=== PATIENT | male | born 1995 | race Caucasian/White ===

== ENCOUNTER → 2017-06-01 | Day surgery (SDC) | payer BC ==
[~2017-06-01] MED LIST: ADVIL200 M3 PO; ALEVE220 M1 PO
--- NOTE | ~2017-06-01 | OR ---
Unit #: [id number] #: [id number] Patient: ZIA JOHNSON [id number] [address] [place], [place] [address] [id number] O MR#: [id number] NAME: ZIA JOHNSON ROOM: Date of Procedure: 06/01/2017 Admission Date: 06/01/2017 Surgeon: Brenden Gonzalez M.D. : 1995 Attending Physician: Mynor Gonzalez Primary Care Physician: Ed Benitez M.D. [facility]ENTER OPERATIVE NOTE PROCEDURE PERFORMED Lumbar epidural steroid injection under x-ray guided needle placement with provider administered conscious sedation. PREOPERATIVE DIAGNOSES 1. Acute lumbar radiculitis. 2. Spinal stenosis, lumbosacral spine. 3. Listhesis at L5-S1. 4. Facet arthropathy, L5-S1. 5. Degenerative joint disease, lumbosacral spine. 6. Degenerative disk disease, lumbosacral spine. INDICATIONS FOR PROCEDURE The patient presents today with a month's long history of right-sided radicular pain, which has not improved with palpation, treatment including medications and therapy. He is in possession of an MRI/CT report, which shows disease at the L5-S1 level. Disease is seemingly worse on the left by x-ray, but his symptoms are on the right. After discussing risks and benefits of proceeding today with a lumbar approach epidural steroid injection with return to this clinic on 06/15/2017, the patient agreed this would be the appropriate course. DESCRIPTION OF PROCEDURE He was then taken to the operating room, where he was prepped and draped in a sterile manner. Standard monitors were applied. He was sedated with 2 mg of IV Versed and lumbar epidural space accessed at the L5-S1 level using loss of resistance technique and x-ray guidance and the rightward deflection of the needle. The patient experienced a brief paresthesia when the needle first entered into the epidural space. There was no further paresthesia with the injection of approximately 2 mL of Omnipaque of which there was good superior and inferior flow. However after approximately a 1 to 2 mL of the injectate, the patient began to experience a severe discomforting right-sided paresthesia. At that point, the needle was withdrawn and replaced in a more midline fashion again using loss of resistance technique. Following this second more midline approach, we were able to complete the injection of the 2 mL normal saline, 2 mL of 0.25% bupivacaine, 80 mg injectate with the patient experiencing a slight recurrence of his paresthesia near the conclusion of that injection. Needle was withdrawn and the paresthesia begin to resolve somewhat. We discussed the possibility of a steroid flare and pain resulting for the next 48 to 72 hours from this injection after the procedure was concluded with the patient's mother. Unit #: [id number] #: [id number] Patient: ZIA JOHNSON Dictated by... Blake Cardona/mariya TD: 06/01/2017 16:31 JOB #: [id number] CC: John Roman M.D. [facility]ENTER OPERATIVE NOTE Page 1 of 1 X Mynor Gonzalez MD X PROCEDURE OPERATIVE NOTE
== END | disposition home or self-care (01) ==
LOC: CCSC 14:40
DX: M51.17 Intervertebral disc disorders with radiculopathy, lumbosacral region (principal); M47.27 Other spondylosis with radiculopathy, lumbosacral region; M43.17 Spondylolisthesis, lumbosacral region; M48.07 Spinal stenosis, lumbosacral region; Z79.1 Long term (current) use of non-steroidal anti-inflammatories (NSAID); Z79.899 Other long term (current) drug therapy
CPT/HCPCS: J1040; J2250

== ENCOUNTER → 2017-06-15 | Day surgery (SDC) | payer BC ==
--- NOTE | ~2017-06-15 | OR ---
Unit #: [id number] #: [id number] Patient: ZIA JOHNSON [id number] [address] [address] [id number] O MR#: [id number] NAME: ZIA JOHNSON ROOM: Date of Procedure: 06/15/2017 Admission Date: 06/15/2017 Surgeon: Brenden Gonzalez M.D. : 1995 Attending Physician: Mynor Gonzalez Primary Care Physician: Ed Benitez M.D. [facility]ENTER OPERATIVE NOTE PROCEDURE PERFORMED Lumbar epidural steroid injection under x-ray guided needle placement with provider administered conscious sedation. PREOPERATIVE DIAGNOSES 1. Acute lumbar radiculitis. 2. Spinal stenosis, L5-S1. 3. Herniated disk, L5-S1. 4. Retrolisthesis at L5-S1. 5. Facet arthrosis, L5-S1. 6. Degenerative joint disease, lumbosacral spine. 7. Degenerative disk disease, lumbosacral spine. INDICATIONS FOR PROCEDURE The patient presents today status post one previous lumbar approach epidural steroid injection for an acute radiculitis, which had failed to respond to conservative therapy. The patient states he got some mild relief; however, the relief was not complete nor it was completely long lasting as he did have return of his symptomatology in the intervening time between his initial injection and his visit today. After discussing risks and benefits of proceeding today with second lumbar approach epidural steroid injection with return on 09/21/2017 for followup as well as referral to [facility] for potential radiofrequency ablation, the patient agreed this would be the appropriate course of action. DESCRIPTION OF PROCEDURE He was then taken to the operating room, where he was prepped and draped in a sterile manner. Standard monitors were applied. He was sedated with 2 mg of IV Versed initially and required an additional 2 mg of IV Versed throughout the duration of procedure. Lumbar epidural space accessed at the L5-S1 using loss of resistance technique and x-ray guidance. Needle placement was confirmed with injection of 2 mL of Omnipaque. There was good superior and inferior flow at this L5-S1 placed needle. Following successful needle placement confirmation at the L5-S1 level, the patient received an injectate containing 4 mL normal saline and 80 mg of methylprednisolone. He tolerated this procedure well. He was discharged home with followup instructions, which include return dates as described above. Dictated by... Brenden Gonzalez M.D. Unit #: [id number] #: [id number] Patient: ZIA JOHNSON JRMarlene/mariya TD: 06/15/2017 15:01 JOB #: [id number] CC: John Roman M.D. [facility]ENTER OPERATIVE NOTE Page 1 of 1 X Mynor Gonzalez MD X PROCEDURE OPERATIVE NOTE
== END | disposition home or self-care (01) ==
LOC: CCSC 12:08
DX: M51.17 Intervertebral disc disorders with radiculopathy, lumbosacral region (principal); M48.07 Spinal stenosis, lumbosacral region; M47.27 Other spondylosis with radiculopathy, lumbosacral region; M43.17 Spondylolisthesis, lumbosacral region; Z79.1 Long term (current) use of non-steroidal anti-inflammatories (NSAID); Z79.899 Other long term (current) drug therapy
CPT/HCPCS: J1040; J2250